=== PATIENT | female | born 2000 | race Caucasian/White ===

== ENCOUNTER → 2023-10-08 10:27 | Outpatient (REF) | payer BC, SELFPAY | LOC: RAD 10:27 | PROVIDERS: ATTENDING PHYSICIAN Family Medicine | DX: R07.81 Pleurodynia (principal); Z86.16 Personal history of COVID-19 | CPT/HCPCS: 71046 ==

== ENCOUNTER → 2023-11-25 12:53 | Outpatient (REF) | payer BC, SELFPAY | LOC: HWRAD 12:53 | PROVIDERS: ATTENDING PHYSICIAN Nurse Practitioner Family; FAMILY PHYSICIAN Physician Assistant | DX: N93.9 Abnormal uterine and vaginal bleeding, unspecified (principal) | CPT/HCPCS: 76830; 76856 ==